=== PATIENT | female | born 1940 | race Caucasian/White ===

== ENCOUNTER → 2021-07-01 13:40 | Outpatient (CLI) | payer MEDICARE, SELFPAY ==
--- NOTE | 2021-07-01 | DI.NM.S_ITS ---
PROCEDURE: NM EXERCISE TREADMILL NON NUC COMPARISON: None. INDICATIONS: Palpitations FINDINGS: The patient exercised 6 minutes and 0 seconds, reaching 7.0 METs, DELFINO -30%, and 121% of maximum predicted heart rate. Appropriate BP response to exercise. No angina during the study. No diagnostic ST changes with exercise or during recovery. Rare PVCs during recovery. IMPRESSION: Low risk, normal treadmill non-nuclear stress with good exercise tolerance (DELFINO -30%) and without anginal symptoms. Target heart rate reached, no diagnostic ST changes with exercise or during recovery, and rare PVCs during recovery. Dictated by: Armin Daigle MD on 07/01/2021 at 17:02 Approved by: Armin Daigle MD on 07/01/2021 at 17:05
[2021-07-01 15:46] LABS: COVID19 -Nasal RAPID Negative (Negative)
== END ==
PROVIDERS: PCP Family Medicine; Referring Provider Nurse Practitioner; Visit Provider Nurse Practitioner
DX: R00.2 Palpitations (principal); Z20.822 Contact with and (suspected) exposure to COVID-19
CPT/HCPCS: 87635; 93017